=== PATIENT | female | born 1995 | race Caucasian/White ===

== ENCOUNTER 2018-03-27 07:45 | Day surgery (SDC) | payer OTHER ==
[2018-03-26 11:01] VITALS: BMI 26.4
[2018-03-27] MEDS ORDERED: Bupivacaine HCl 0.5%/Epinephrine 1:200,000/PF 30 ml Vial ONE (10:57)
[2018-03-27] MEDS ORDERED: Calcium Chloride 1 GM/10 ML Abboject SYRINGE ONE (10:58)
[2018-03-27] MEDS ORDERED: Thrombin 5000 UNITS/5 ML VIAL ONE (10:58)
[2018-03-27] MEDS ORDERED: Fentanyl 100 MCG/2 ML VIAL ONE ×2 (11:08)
[2018-03-27] MEDS ORDERED: Ondansetron PF 4 MG/2 ML Vial ONE (12:56)
[2018-03-27] MEDS ORDERED: Lidocaine 1% PF 5 ML VIAL ONE (12:56)
[2018-03-27] MEDS ORDERED: PHENYLEPHRINE-NS 100 MCG/ML 10 ML SYRINGE ONE (12:56)
[2018-03-27] MEDS ORDERED: Dexamethasone 20 MG/5 ML VIAL ONE (12:56)
[2018-03-27] MEDS ORDERED: Glycopyrrolate 0.2 MG/ML 5 ML SYRINGE ONE (12:56)
[2018-03-27] MEDS ORDERED: ePHEDrine/0.9% NaCl/PF SYRINGE 50 mg/10 ml ONE (12:56)
[2018-03-27] MEDS ORDERED: PROPOFOL 200 MG/20 ML VIAL ONE (12:56)
[2018-03-27] MEDS ORDERED: Promethazine HCl 25 MG/ML VIAL ONE (13:01)
[2018-03-27 17:15] LABS: BHCG - Serum Negative (NEGATIVE); Pregs Control Background? CLEAR/WHITE (CLR/WHITE); Pregs Control Bar Appear? YES (CONTROL BAR)
--- NOTE | 2018-03-30 10:51 | OP ---
DATE OF PROCEDURE: 03/27/2018 PREOPERATIVE DIAGNOSES: 1. A 22-year-old female G1, P1 with a history of escalating pelvic pain. 2. Dysmenorrhea. 3. Menorrhagia. 4. Dyspareunia. 5. Chronic fatigue and pain syndrome. POSTOPERATIVE DIAGNOSES: 1. A 22-year-old female G1, P1 with a history of escalating pelvic pain. 2. Dysmenorrhea. 3. Menorrhagia. 4. Dyspareunia. 5. Chronic fatigue and pain syndrome. PROCEDURES PERFORMED: 1. Diagnostic laparoscopy. 2. Diagnostic hysteroscopy. 3. Dilation and curettage. SPECIMENS: Endometrial curettage. ESTIMATED BLOOD LOSS: Negligible, less than 5 mL SURGEON: Jacqui Mejia M.D. CUSTOMER RETENTION REPRESENTATIVE: None. ANESTHESIA: General. CLINICAL HISTORY: This patient is a 22-year-old female G1, P1-0-0-1 who presented to my office with a complaint of persistent crampy, sharp pain. The pain originally was with her menses; however, she has noticed that now it is outside of her menstrual cycle. Patient also notices that she has difficulty lubricating and has pain with sex. She was up until and the patient was counseled that will cause some of the symptoms that she was experiencing. The patient also had noted that she prior to her had pain with chronic fatigue in her abdomen. She also has a history of irritable bowel syndrome and gastroesophageal reflux disease and it was presumed initially that this was the source of her pain. The patient did not have any symptoms of pain during her and had an uneventful that ended with a vaginal delivery. The patient was counseled after cessation of and an ultrasound was performed, which was unremarkable. The patient did have a collection of fluid behind the uterus otherwise and she was advised for a trial of hormone, but the patient is extremely fearful of hormones causing more problems than she already has. She wanted a surgical exploration. She was counseled on the procedure to look inside the pelvis as well as inside the uterus for any source of her pain. The risks, benefits and possible complications as well as alternatives were discussed and the patient wished to proceed. DETAILS OF PROCEDURE: The patient was taken to the operating room where general anesthesia was obtained. She was laid in the supine position with her legs in the Yellofin stirrups and she was prepped and draped in the usual sterile fashion. A weighted speculum was placed into the vagina and a Patterson catheter was then placed. She was gently dilated and a uterine manipulation device was placed. Once the device was placed and secured, the attention was turned to the abdomen where the abdomen was tented and an incision was made in the lower umbilical border. The direct scope 5 mm trocar was placed into this incision and while tenting the abdomen, the abdomen was entered. Once in the abdomen, CO2 gas was used to insufflate the abdomen. A general survey of the pelvis once the patient was placed in steep Trendelenburg revealed no injury to the underlying structures and no signs of pathology. The decision was made to end the laparoscopic portion of this procedure. The appendix was visualized and was noted to be normal and the camera was then taken out of the incision and the abdomen was deflated of the CO2 gas. A 4-0 Monocryl was used to close the incision and excellent hemostasis was noted. The attention was then turned back down to the pelvis where the manipulation device was removed and the hysteroscope was used to view the inner contents of the uterus. It was noted that she had no intrauterine pathology; however, she did have some thickening in the cavity and this was corrected by performing a D&C after the scope was removed. The contents of the curettage was collected on a Telfa pad and sent to the pathologist. The expectation is benign findings. The patient was hemostatic after the collection of the curettage and she was sent to the recovery position cleansed and redraped. All needle, sponge, lap, and instrument counts were correct x2 at the end of the procedure. There were no other issues surrounding this surgery. SOLO
== END 2018-03-27 14:25 | disposition home or self-care (01) ==
LOC: SDC 07:45
PROVIDERS: ATTEND Obstetrics & Gynecology
PROC: 0WJJ4ZZ Inspection of Pelvic Cavity, Percutaneous Endoscopic Approach (ICD-10-PCS; principal; 2018-03-27)
PROC: 0UJD8ZZ Inspection of Uterus and Cervix, Via Natural or Artificial Opening Endoscopic (ICD-10-PCS; principal; 2018-03-27)
PROC: 0UDB7ZX Extraction of Endometrium, Via Natural or Artificial Opening, Diagnostic (ICD-10-PCS; principal; 2018-03-27)
DX: N92.1 Excessive and frequent menstruation with irregular cycle (principal); R10.2 Pelvic and perineal pain; N94.10 Unspecified dyspareunia; G89.4 Chronic pain syndrome; K21.9 Gastro-esophageal reflux disease without esophagitis; K58.9 Irritable bowel syndrome, unspecified; Z88.1 Allergy status to other antibiotic agents; Z88.6 Allergy status to analgesic agent; Z88.8 Allergy status to other drugs, medicaments and biological substances; Z91.048 Other nonmedicinal substance allergy status
CPT/HCPCS: 84703; 88305; 96374; J0131; J0670; J1100; J2001; J2405; J2550; J2704; J3010

== ENCOUNTER 2019-01-04 11:18 | Inpatient (IN) | payer OTHER ==
[2019-01-04] MEDS ORDERED: Promethazine HCl 25 MG/ML VIAL IM PRN ×2 (12:04→18:16)
[2019-01-04] MEDS ORDERED: Docusate 100 MG CAP PO PRN (12:04)
[2019-01-04] MEDS ORDERED: hydrALAZINE 20 MG/ML VIAL SLOW IVP PRN ×2 (12:04→20:03)
[2019-01-04] MEDS ORDERED: Ibuprofen 800 MG TAB PO PRN (12:04)
[2019-01-04] MEDS ORDERED: HYDROcodone/Acetaminophen 5/325 mg Tablet PO PRN ×3 (12:04→20:03)
[2019-01-04] MEDS ORDERED: NS / Oxytocin 40 units/1000ml 1,000 ML IV PRN (12:04)
[2019-01-04] MEDS ORDERED: Butorphanol Tartrate 1 MG/ML VIAL SLOW IVP PRN (12:04)
[2019-01-04] MEDS ORDERED: Lidocaine 1% (PF) 30 ML VIAL SC PRN (12:04)
[2019-01-04] MEDS ORDERED: Ondansetron PF 4 MG/2 ML Vial IVP PRN ×3 (12:04→20:03)
[2019-01-04] MEDS ORDERED: NS w/ Oxytocin 10 units 500 ML IV SCH (12:15)
[2019-01-04 12:26] LABS: Hemoglobin 10.6 g/dL (12.0-16.0); Mean Corpuscular HGB CONC 31.8 g/dL (32.0-36.0); Mean Corpuscular Hemoglobin 27.9 pg (27.0-31.0); Mean Corpuscular Volume 87.5 fL (78.0-98.0); Mean Platelet Volume 8.8 fL (7.4-10.4); Platelet Count 173 thou/uL (130-400); RBC Distribution Width 14.5 % (11.5-14.5); Red Blood Cell (RBC) Count 3.82 mill/uL (4.20-5.40); White Blood Cell (WBC) Count 8.9 thou/uL (4.8-10.8)
[2019-01-04 13:08] LABS: HBSAg Index 0.29 S/CO (0-0.99); Hep B Surf Ag Non-Reactive S/CO (NonReactive); Syphilis Antibody Nonreactive (Nonreactive); Syphilis Antibody Index 0.04 S/CO (<1.00 Non-Reactive)
[2019-01-04 14:02] VITALS: BMI 31.5
[2019-01-04] MEDS ORDERED: Fentanyl 4 mcg/Bup 0.1% Cadd 100 ML ONE (17:30)
[2019-01-04] MEDS: Lactated Ringer's 1,000 ML IV SCH ×2 (18:11→22:24)
[2019-01-04] MEDS ORDERED: diphenhydrAMINE 50 MG/ML VIAL IVP PRN (18:16)
[2019-01-04] MEDS ORDERED: Acetaminophen 325 MG TAB PO PRN (18:16)
[2019-01-04] MEDS ORDERED: Naloxone HCl 0.4 mg/ml Vial IVP PRN ×2 (18:16)
[2019-01-04] MEDS ORDERED: Lactated Ringer's 500 ML IV PRN (18:16)
[2019-01-04] MEDS ORDERED: ePHEDrine/0.9% NaCl/PF SYRINGE 50 mg/10 ml SLOW IVP PRN (18:16)
[2019-01-04] MEDS ORDERED: Fentanyl 4 mcg/Bupivacaine 0.1% Cassette 100 ML EPIDURAL SCH ×2 (18:30→19:29)
[2019-01-04] MEDS ORDERED: Communication Order-Pharmacy FS SCH (18:30)
[2019-01-04] MEDS ORDERED: Lidocaine 1% (PF) 30 ML VIAL ONE (19:11)
[2019-01-04] MEDS: NS / Oxytocin 40 units/1000ml 1,000 ML ONE ×2 (19:30→20:59)
[2019-01-04] MEDS ORDERED: Preparation H Ointment 28 GM TUBE PR PRN (20:03)
[2019-01-04] MEDS ORDERED: Benzocaine-Menthol 82.5 ML CAN TOP PRN (20:03)
[2019-01-04] MEDS ORDERED: Milk Of Magnesia 30 ML UDCUP PO PRN (20:03)
[2019-01-04] MEDS ORDERED: Bisacodyl 10 MG SUPP PR PRN (20:03)
[2019-01-04] MEDS ORDERED: Lanolin Ointment 7 GM TUBE TOP PRN (20:03)
[2019-01-04] MEDS ORDERED: NS / Oxytocin 40 units/1000ml 1,000 ML IV SCH (20:15)
[2019-01-04] MEDS: Docusate Calcium (SURFAK) 240 MG CAP PO SCH (22:47)
[2019-01-04] MEDS: Ibuprofen 800 MG TAB PO SCH (22:47)
[2019-01-05] MEDS: Lactated Ringer's 1,000 ML IV SCH ×3 (03:47→22:30)
[2019-01-05] MEDS: Ibuprofen 800 MG TAB PO SCH ×3 (05:16→21:11)
[2019-01-05] MEDS: Docusate Calcium (SURFAK) 240 MG CAP PO SCH ×2 (08:05→21:11)
[2019-01-05] MEDS: Ferrous Sulfate 325 MG TAB PO SCH ×2 (08:05→17:58)
[2019-01-05] MEDS: Prenatal Vitamin 1 TAB PO SCH (08:06)
[2019-01-05] MEDS ORDERED: Adacel (T-DAP) 0.5 ML SYRINGE IM ONE (09:00)
[2019-01-05] MEDS: HYDROcodone/Acetaminophen 5/325 mg Tablet PO PRN ×3 (13:40→21:12)
[2019-01-06] MEDS: HYDROcodone/Acetaminophen 5/325 mg Tablet PO PRN (06:08)
[2019-01-06] MEDS: Ibuprofen 800 MG TAB PO SCH (06:08)
[2019-01-06] MEDS: Lactated Ringer's 1,000 ML IV SCH (06:46)
[2019-01-06 08:03] VITALS: BP 118/61; TEMP 98.4
[2019-01-06] MEDS: Prenatal Vitamin 1 TAB PO SCH (08:42)
[2019-01-06] MEDS: Docusate Calcium (SURFAK) 240 MG CAP PO SCH (08:43)
[2019-01-06] MEDS: Ferrous Sulfate 325 MG TAB PO SCH (08:43)
== END 2019-01-06 13:20 | disposition home or self-care (01) | DRG 807 ==
LOC: L&D/OP 11:18 → EDSTATUS 11:23 → L&D 11:24 → 3SE 22:14
PROVIDERS: ADMIT Obstetrics & Gynecology; ATTEND Obstetrics & Gynecology
PROC: 10E0XZZ Delivery of Products of Conception, External Approach (ICD-10-PCS; principal; 2019-01-04)
PROC: 0KQM0ZZ Repair Perineum Muscle, Open Approach (ICD-10-PCS; 2019-01-04)
PROC: 10907ZC Drainage of Amniotic Fluid, Therapeutic from Products of Conception, Via Natural or Artificial Opening (ICD-10-PCS; 2019-01-04)
DX: O99.344 Other mental disorders complicating childbirth (principal); Z37.0 Single live birth; O99.62 Diseases of the digestive system complicating childbirth; F41.9 Anxiety disorder, unspecified; O70.1 Second degree perineal laceration during delivery; Z3A.38 38 weeks gestation of pregnancy; K21.9 Gastro-esophageal reflux disease without esophagitis
CPT/HCPCS: 36415; 51702; 85027; 86780; 86850; 86900; 86901; 87340; J2001; J2405; J2590